=== PATIENT | male | born 1985 | race Caucasian/White ===

== ENCOUNTER 2019-04-22 21:07 | Emergency (ER) | payer BC ==
[2019-04-22 21:46] VITALS: BP 197/101
[2019-04-22] MEDS ORDERED: Lidocaine 2% Viscous Solution 15 ML Cup PO ONE (21:51)
[2019-04-22] MEDS ORDERED: Benzocaine 20% Topical Spray UD MUCMEM ONE (21:52)
[2019-04-22] MEDS ORDERED: Acetaminophen/HYDROcodone 325-10 MG Tab PO ONE (21:54)
--- NOTE | 2019-04-22 21:54 | EDM.PDOC ---
ED HPI GENERAL MEDICAL PROBLEM - General Chief Complaint: ENT Problem Stated Complaint: TOOTH ABSCESS Time Seen by Provider: 04/22/19 21:15 - History of Present Illness INITIAL COMMENTS - FREE TEXT/NARRATIVE: HISTORY AND PHYSICAL: History of present illness: Patient is a 33-year-old white male presented concern of dental abscess he had pain and swelling to his left lower molar region and jaw he was put on amoxicillin by his dentist and does have a scheduled appointment this week. He is here primarily for pain Review of systems: As per history of present illness and below otherwise all systems reviewed and negative. Past medical history: As per history of present illness and as reviewed below otherwise noncontributory. Surgical history: As per history of present illness and as reviewed below otherwise noncontributory. Social history: No reported history of drug or alcohol abuse. Family history: As per history of present illness and as reviewed below otherwise noncontributory. Physical exam: HEENT: Atraumatic, normocephalic, pupils reactive, negative for conjunctival pallor or scleral icterus, mucous membranes moist, throat clear, neck supple, nontender, trachea midline. Generally poor dentition swelling in the left molar region and left jaw Lungs: Clear to auscultation, breath sounds equal bilaterally, chest nontender. Heart: S1S2, regular, negative for clicks, rubs, or JVD. Abdomen: Soft, nondistended, nontender. Negative for masses or hepatosplenomegaly. Negative for costovertebral tenderness. Pelvis: Stable nontender. Genitourinary: Deferred. Rectal: Deferred. Extremities: Atraumatic, negative for cords or calf pain. Neurovascular unremarkable. Neuro: Awake, alert, oriented. Cranial nerves II through XII unremarkable. Cerebellum unremarkable. Motor and sensory unremarkable throughout. Exam nonfocal. Diagnostics: None Therapeutics: Hydrocodone 10 mg by mouth Impression: #1 dentalgia #2 dental abscess Definitive disposition and diagnosis as appropriate pending reevaluation and review of above. dental Pain Score (Numeric/FACES): 7 - Related Data Allergies Allergy/AdvReac Type Severity Reaction Status Date / Time No Known Allergies Allergy Verified 04/22/19 21:47 Home Meds: Home Meds Amoxicillin 500 mg PO TID 04/22/19 [History] ED ROS GENERAL - Review of Systems Review Of Systems: ROS reveals no pertinent complaints other than HPI. ED EXAM, GENERAL - Physical Exam Exam: See Below (dictation) Course - Vital Signs Last Recorded V/S: Last Vital Signs Temp 35.7 C 04/22/19 21:31 Pulse 86 04/22/19 21:31 Resp 18 04/22/19 21:31 BP 197/101 H 04/22/19 21:31 Pulse Ox 97 04/22/19 21:31 - Orders/Labs/Meds Meds: Medications Discontinued Medications Generic Name Dose Route Start Last Admin Trade Name Rinku PRN Reason Stop Dose Admin Lidocaine HCl 15 ml 04/22/19 21:51 Xylocaine 2% Viscous PO 04/22/19 21:52 ONETIME ONE Departure - Departure Time of Disposition: 21:53 Disposition: Home, Self-Care 01 Condition: Good Clinical Impression: Dental abscess - Discharge Information Referrals: PCP,None [Primary Care Provider] - Additional Instructions: The following information is given to patients seen in the emergency department who are being discharged to home. This information is to outline your options for follow-up care. We provide all patients seen in our emergency department with a follow-up referral. The need for follow-up, as well as the timing and circumstances, are variable depending upon the specifics of your emergency department visit. If you don't have a primary care physician on staff, we will provide you with a referral. We always advise you to contact your personal physician following an emergency department visit to inform them of the circumstance of the visit and for follow-up with them and/or the need for any referrals to a consulting specialist. The emergency department will also refer you to a specialist when appropriate. This referral assures that you have the opportunity for followup care with a specialist. All of these measure are taken in an effort to provide you with optimal care, which includes your followup. Under all circumstances we always encourage you to contact your private physician who remains a resource for coordinating your care. When calling for followup care, please make the office aware that this follow-up is from your recent emergency room visit. If for any reason you are refused follow-up, please contact the [facility] emergency department at and asked to speak to the emergency department charge nurse. Dental balls as directed Ultram hydrocodone as prescribed Motrin as directed continue amoxicillin keep dental appointment as scheduled and return as needed as discussed
== END 2019-04-22 22:10 | disposition home or self-care (01) ==
LOC: MW.ED 21:07
DX: K04.7 Periapical abscess without sinus (principal)
CPT/HCPCS: 99282; A9270

== ENCOUNTER 2020-04-03 07:33 | Day surgery (SDC) | payer BC, OTHER ==
[~2020-04-03 07:33] MED LIST: HYDROmorphone 2 MG/ML Syringe ONE; Ketorolac 30 MG/ML SDV ONE; Lactated Ringers 1,000 ML IV SCH; Lidocaine 2% 100 MG/5 ML Syringe ONE; Midazolam 1 MG/ML 2 ML SDV ONE; Ondansetron 4 MG/2 ML SDV ONE; Propofol 200 MG/20 ML SDV ONE; Sodium Chloride 0.9% 10 ML SDV IV PRN; Sodium Chloride 0.9% 10 ML Syringe FLUSH PRN; Sodium Chloride 0.9% 2.5 ML Syringe FLUSH PRN; fentaNYL 100 MCG/2 ML SDV ONE
--- NOTE | 2020-04-03 07:53 | PCM.PREANE ---
Preanesthetic Assessment - Anesthesia/Transfusion/Family Hx Anesthesia History: Prior Anesthesia Without Reaction Family History of Anesthesia Reaction: No Transfusion History: No Prior Transfusion(s) - Review of Systems General: No Symptoms Pulmonary: No Symptoms Cardiovascular: No Symptoms Gastrointestinal: No Symptoms Neurological: No Symptoms Other: Reports: None - Physical Assessment NPO Status Date: 04/02/20 Height: 6 ft 3 in Weight: 154.221 kg ASA Class: 2 Mental Status: Alert & Oriented x3 Airway Class: Mallampati = 2 Dentition: Reports: Normal Dentition ROM/Head Extension: Full Lungs: Clear to Auscultation, Normal Respiratory Effort Cardiovascular: Regular Rate, Regular Rhythm - Allergies Allergies/Adverse Reactions: Allergies Allergy/AdvReac Type Severity Reaction Status Date / Time No Known Allergies Allergy Verified 04/02/20 15:59 - Blood Blood Available: No - Anesthesia Plan Pre-Op Medication Ordered: None - Acknowledgements Anesthesia Type Planned: Spinal (saddle block) Pt an Appropriate Candidate for the Planned Anesthesia: Yes Alternatives and Risks of Anesthesia Discussed w Pt/Guardian: Yes Pt/Guardian Understands and Agrees with Anesthesia Plan: Yes Additional Comments: PMH: zarina uses CPAP, obesity, smoker PreAnesthesia Questionnaire - Past Health History Medical/Surgical History: Denies Medical/Surgical History Respiratory History: Reports: Sleep Apnea Other Respiratory History: uses CPAP every night Gastrointestinal History: Reports: GERD Other Gastrointestinal History: takes OTC pepsid or prilosec as needed Musculoskeletal History: Reports: Fracture Other Musculoskeletal History: hx of fx right ankle, left and right arm, fingers and toes Neurological History: Reports: Migraines Other Neuro History: occasional migraines- takes Excedrine Endocrine/Metabolic History: Reports: Obesity/BMI 30+ - Infectious Disease History Infectious Disease History: Reports: Chicken Pox - Past Surgical History Head Surgeries/Procedures: Reports: None HEENT Surgical History: Reports: Other (See Below) Other HEENT Surgeries/Procedures: had anesthesia for 2 teeth removal Musculoskeletal Surgical History: Reports: Other (See Below) Other Musculoskeletal Surgeries/Procedures:: closed reduction of fx right arm - SUBSTANCE USE Smoking Status *Q: Current Every Day Smoker Tobacco Use Within Last Twelve Months: Cigarettes Recreational Drug Use History: No - HOME MEDS Home Medications: Home Meds Aspirin/Acetaminophen/Caffeine [Excedrin Migraine Caplet] 1 tab PO ASDIRECTED PRN 04/02/20 [History] Famotidine [Pepcid] 20 mg PO ASDIRECTED PRN 04/02/20 [History] - CURRENT (IN HOUSE) MEDS Current Meds: Current Medications Lactated Ringer's (Ringers, Lactated) 1,000 mls @ 100 mls/hr IV ASDIRECTED ZOYA Sodium Chloride (Saline Flush) 10 ml FLUSH ASDIRECTED PRN PRN Reason: Keep Vein Open Sodium Chloride (Saline Flush) 2.5 ml FLUSH ASDIRECTED PRN PRN Reason: Keep Vein Open Sodium Chloride (Normal Saline) 10 ml IV ASDIRECTED PRN PRN Reason: IV Use Discontinued Medications Fentanyl (Sublimaze) Confirm Administered Dose 100 mcg .ROUTE .STK-MED ONE Stop: 04/03/20 07:33 Hydromorphone HCl (Dilaudid) Confirm Administered Dose 2 mg .ROUTE .STK-MED ONE Stop: 04/03/20 07:33 Ketorolac Tromethamine (Toradol) Confirm Administered Dose 30 mg .ROUTE .STK- MED ONE Stop: 04/03/20 07:33 Lidocaine HCl (Xylocaine 2%) Confirm Administered Dose 100 mg .ROUTE .STK-MED ONE Stop: 04/03/20 07:33 Midazolam HCl (Versed 1 Mg/Ml) Confirm Administered Dose 2 mg .ROUTE .STK-MED ONE Stop: 04/03/20 07:33 Ondansetron HCl (Zofran) Confirm Administered Dose 4 mg .ROUTE .STK-MED ONE Stop: 04/03/20 07:33 Propofol (Diprivan 20 Ml) Confirm Administered Dose 200 mg .ROUTE .STK-MED ONE Stop: 04/03/20 07:33
[2020-04-03] MEDS ORDERED: Chloroprocaine 10 MG/ML 5 ML Amp ONE (10:01)
[2020-04-03] MEDS ORDERED: Midazolam 1 MG/ML 2 ML SDV ONE (10:14)
[2020-04-03] MEDS ORDERED: ASPIRIN PO PRN (11:16)
[2020-04-03] MEDS ORDERED: CAFFEINE PO PRN (11:16)
[2020-04-03] MEDS ORDERED: ACETAMINOPHEN PO PRN (11:16)
[2020-04-03] MEDS ORDERED: Famotidine 20 MG Tab PO PRN (11:16)
--- NOTE | 2020-04-03 11:33 | PCM.POSTAN ---
POST ANESTHESIA ASSESSMENT - MENTAL STATUS Mental Status: Alert, Oriented - VITAL SIGNS Vital Signs: Last Vital Signs Temp 36.4 C 04/03/20 11:13 Pulse 76 04/03/20 11:24 Resp 19 04/03/20 11:24 BP 122/65 04/03/20 11:24 Pulse Ox 97 04/03/20 11:24 - RESPIRATORY Respiratory Status: Respiratory Rate WNL, Airway Patent, O2 Saturation Stable - CARDIOVASCULAR CV Status: Pulse Rate WNL, Blood Pressure Stable (spinal dermatome at L2)
[2020-04-03] MEDS ORDERED: Acetaminophen/HYDROcodone 325-5 MG Tab PO ONE (12:04)
--- NOTE | 2020-04-03 12:19 | PCM48HPAN ---
Post Anesthesia Note - EVALUATION WITHIN 48HRS OF ANESTHETIC Vital Signs in Normal Range: Yes Patient Participated in Evaluation: Yes Respiratory Function Stable: Yes Airway Patent: Yes Cardiovascular Function Stable: Yes Hydration Status Stable: Yes Pain Control Satisfactory: Yes Nausea and Vomiting Control Satisfactory: Yes Mental Status Recovered: Yes Vital Signs: Last Vital Signs Temp 36.4 C 04/03/20 11:13 Pulse 76 04/03/20 11:29 Resp 14 04/03/20 11:29 BP 106/64 04/03/20 11:29 Pulse Ox 97 04/03/20 11:29
[2020-04-03 13:50] VITALS: BP 120/63; PULSE 81
--- NOTE | 2020-04-03 18:57 | OR ---
SURGEON: Arelis Fermin M.D. DATE OF PROCEDURE: 04/03/2020 PREOPERATIVE DIAGNOSES: Superficial penile shaft abscess and a scrotal abscess. The penile shaft abscess is on the left and scrotal abscess is on the right. POSTOPERATIVE DIAGNOSES: Superficial penile shaft abscess and a scrotal abscess. The penile shaft abscess is on the left and scrotal abscess is on the right. OPERATION: Incision and drainage of both with packing. DESCRIPTION OF PROCEDURE: The patient was given spinal anesthesia. He was in the supine position. External genital area was prepped and draped with sterile drapes. The abscess on the left was opened, and a Bernice clamp was introduced into the abscess cavity, which was then packed with iodoform. The abscess on the right was opened. It was a smaller abscess, did not have any pus in it. Apparently, they both drained last night. , it was a significantly smaller cavity, so I put a quarter-inch [place] drain in and secured into place with 2-0 silk. Proper dressing was applied, and the patient will be sent home today. I will see him again in 2 days to repack the left and look up the culture report. CHIP / SAMIR /[id number]
== END 2020-04-03 12:22 | disposition home or self-care (01) ==
LOC: MW.SDS 07:33 → EEVIPCON 07:33 → EDSTATUS 09:45 → MW.SDS 12:22
PROVIDERS: ATTEND Urology
DX: N49.2 Inflammatory disorders of scrotum (principal); E66.9 Obesity, unspecified; F17.210 Nicotine dependence, cigarettes, uncomplicated; Z11.59 Encounter for screening for other viral diseases; Z68.42 Body mass index [BMI] 45.0-49.9, adult
CPT/HCPCS: 10060; 55100; 87635; A9270; J2250; J2400; J7120; 00920; J1170; J1885; J2001; J2405; J2704; J3010; U0002